=== PATIENT | female | born 2000 ===

== ENCOUNTER 2019-01-06 21:24 | Emergency (ER) | payer OTHER ==
[~2019-01-06] VITALS: Ht 160 cm; Wt 64.5 kg
[2019-01-06] MEDS ORDERED: FAMOTIDINE 20 MG TABLET ONE (22:14)
[2019-01-06] MEDS ORDERED: MAALOX/HYOSCYAMINE/LIDOCAINE 45 ML BTL ONE (22:14)
[2019-01-06] MEDS ORDERED: LORazepam 0.5MG TABLET ONE (22:14)
--- NOTE | 2019-01-06 22:27 | NUR ---
REPORT FROM DUY BANERJEE. PT RESTING WITH NO NEEDS AT THIS TIME.
[2019-01-06] MEDS ORDERED: FAMOTIDINE 20 MG TABLET PO ONE (22:30)
[2019-01-06] MEDS ORDERED: MAALOX/HYOSCYAMINE/LIDOCAINE 45 ML BTL PO ONE (22:30)
[2019-01-06] MEDS ORDERED: LORazepam 0.5MG TABLET PO ONE (22:30)
[2019-01-06 23:00] VITALS: BP 135/79
--- NOTE | 2019-01-06 23:20 | NUR ---
Patient given discharge instructions and they have confirmed that they understand the instructions. Patient ambulatory with steady gait.
== END 2019-01-06 23:33 | disposition home or self-care (01) ==
LOC: ED 23:30
DX: K21.9 Gastro-esophageal reflux disease without esophagitis (principal)
CPT/HCPCS: 87081; 87880; 93005; 99284